=== PATIENT | male | born 1960 | race Caucasian/White ===

== ENCOUNTER 2016-10-04 17:52 | Emergency (ER) | payer MEDICARE ==
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
[~2016-10-04 17:52] MED LIST: ATORVASTATIN CA80 MG PO; CLOPIDOGREL75 MG PO; FENOFIBRATE48 MG PO; FLEXERIL PO; GLIPIZIDE10 MG/BOTT PO; GLUCOPHAGE850 MG PO; IBUPROFEN PO; LISINOPRIL10 MG PO; NO MEDICATIONS; PRILOSEC20 MG PO; TYLOX 5/500 CAP1 CAP PO; VICODIN 5/1 TAB 5/50 PO
[2016-10-04] MEDS ORDERED: BAYER CHEWABLE81 MG PO (18:08)
[2016-10-04 18:20] LABS: BASOPHIL# 0.1 X10e3 (0-0.3); BASOPHIL% 0.4 % (0-2.5); EOSINOPHIL# 0.1 X10e3 (0-0.7); EOSINOPHIL% 0.5 % (0.0-7.0); HEMATOCRIT 49.3 % (38.0-50.0); HEMOGLOBIN 16.9 gm/dL (13.0-16.0); LYMPHOCYTE# 2.4 X10e3 (1.0-3.5); LYMPHOCYTE% 13.9 % (17.0-45.0); MEAN CELL VOLUME 86.4 FL (83-96); MEAN CORPUSCULAR HEMOGLOBIN 29.5 PG (28-34); MEAN CORPUSCULAR HGB CONC 34.2 g/dL (30-36); MEAN PLATELET VOLUME 8.8 FL (6.5-11.5); MONOCYTE# 0.8 X10e3 (0-1.0); MONOCYTE% 4.7 % (3.0-12.0); NEUTROPHIL# 13.7 X10e3 (1.5-7.1); NEUTROPHIL% 80.5 % (40-75); PLATELET COUNT 222 X10e3 (140-420); RED BLOOD COUNT 5.71 X10e (3.90-5.60); RED CELL DISTRIBUTION WIDTH 13.5 % (11.0-15.5)
[2016-10-04 18:28] LABS: DIFF IND NO
[2016-10-04 18:34] LABS: URINE SOURCE CLEAN CATCH
[2016-10-04 18:36] LABS: MICRO INDICATED? YES; URINE APPEARANCE CLEAR; URINE BILIRUBIN NEG (NEG); URINE BLOOD NEG (NEG); URINE COLOR YELLOW; URINE GLUCOSE 300 MG/DL (NORM); URINE KETONE NEG (NEG); URINE LEUKOCYTE ESTERASE NEG (NEG); URINE NITRATE NEG (NEG); URINE PH 5.5 (5-8); URINE PROTEIN 1+ (NEG); URINE SPECIFIC GRAVITY 1.025 (1.003-1.035); URINE UROBILINOGEN 0.2 MG/DL (NORM)
[2016-10-04 18:41] LABS: CULTURE INDICATED? NO; URINE BACTERIA NEG (NEG); URINE RBC 0-2 /[HPF] (0-2); URINE SQUAMOUS EPITHELIAL CELL OCCAS /[HPF]
[2016-10-04 18:43] LABS: PROTHROMBIN TIME (PATIENT) 11.2 SECONDS (9.5-12.4)
[2016-10-04 18:50] LABS: PARTIAL THROMBOPLASTIN TIME 29.9 SECONDS (25.6-38.1)
[2016-10-04 18:53] LABS: ALBUMIN SERUM 4.7 g/dL (3.5-5.0); ALCOHOL BLOOD <5 mg/dL (0); ALKALINE PHOSPHATASE 92 U/L (32-92); ALT (SGPT) 45 U/L (10-40); AST (SGOT) 31 U/L (10-42); BILIRUBIN, DIRECT 0.1 mg/dL (0.0-0.2); BILIRUBIN,INDIRECT 0.6 mg/dL (0.0-0.9); BILIRUBIN,TOTAL 0.7 mg/dL (0.2-2.0); BLOOD UREA NITROGEN 17 mg/dL (9-23); BUN/CREATININE RATIO 21.25; CALCIUM SERUM 9.8 mg/dL (8.4-10.2); CARBON DIOXIDE 23 mmol/L (22-31); CHLORIDE 102 mmol/L (100-111); CREATININE SERUM 0.8 mg/dL (0.6-1.4); GLOM FILT RATE Estimated 98.5 mL/min (>60); GLUCOSE FASTING 313 mg/dL (70-110); LIPASE 23 U/L (22-51); POTASSIUM 3.9 mmol/L (3.5-5.1); SODIUM 133 mmol/L (135-145)
== END 2016-10-04 23:28 | disposition home or self-care (01) ==
LOC: SED 17:52
PROVIDERS: Emergency Medicine
DX: S42.102A Fracture of unspecified part of scapula, left shoulder, initial encounter for closed fracture (principal); S22.32XA Fracture of one rib, left side, initial encounter for closed fracture; R91.1 Solitary pulmonary nodule; W01.0XXA Fall on same level from slipping, tripping and stumbling without subsequent striking against object, initial encounter; Y92.9 Unspecified place or not applicable
CPT/HCPCS: 29105; 36415; 70450; 71260; 72125; 73030; 73060; 73200; 74177; 80048; 80076; 81003; 82947; 83690; 85025; 85610; 85730; 96374; 96376; 99284; G0480; J1170; Q9967